=== PATIENT | male | born 1975 | race Caucasian/White ===

== ENCOUNTER 2018-07-01 18:01 | Emergency (ER) | payer OTHER ==
[~2018-07-01] VITALS: Ht 185.4 cm; Wt 113.4 kg
[~2018-07-01 18:01] MED LIST: ALBU4 PO; ALBU90OI6 INH; ALBU90OI61 INH; CYCL10 PO; HYDHCL25 PO; LORA2 PO; META800 PO; Prednisone20 MG PO; SULI150 PO; TRIA15CR3 TOP
== END 2018-07-01 18:38 ==
LOC: ER 18:01
DX: S29.012A Strain of muscle and tendon of back wall of thorax, initial encounter (principal); X58.XXXA Exposure to other specified factors, initial encounter; Z79.899 Other long term (current) drug therapy; J45.909 Unspecified asthma, uncomplicated
CPT/HCPCS: 96372; 99283-25; J1885

== ENCOUNTER 2022-10-01 16:47 | Emergency (ER) | payer OTHER ==
[~2022-10-01] VITALS: Ht 185.4 cm; Wt 117.9 kg
[2022-10-01 16:54] VITALS: BP 144/95
[2022-10-01] MEDS ORDERED: ALBU90OI INH (17:58)
== END 2022-10-01 18:10 | disposition home or self-care (01) ==
LOC: ER 16:47
DX: S52.125A Nondisplaced fracture of head of left radius, initial encounter for closed fracture (principal); M25.512 Pain in left shoulder; W17.89XA Other fall from one level to another, initial encounter; Z79.899 Other long term (current) drug therapy; J45.909 Unspecified asthma, uncomplicated
CPT/HCPCS: 73030; 73080; 73090; 99283-25

== ENCOUNTER 2023-01-07 05:34 | Emergency (ER) | payer OTHER ==
[~2023-01-07] VITALS: Ht 182.9 cm; Wt 113.4 kg
[~2023-01-07 05:34] MED LIST changes: +ALBU90OI INH
[2023-01-07] MEDS ORDERED: MORP15ER PO (09:25)
[2023-01-07] MEDS ORDERED: Robaxin750 MG PO (09:25)
[2023-01-07 10:00] VITALS: BP 136/98
== END 2023-01-07 10:23 | disposition home or self-care (01) ==
LOC: ER 05:34
DX: M53.3 Sacrococcygeal disorders, not elsewhere classified (principal); M54.18 Radiculopathy, sacral and sacrococcygeal region; M54.42 Lumbago with sciatica, left side; M62.830 Muscle spasm of back; J45.909 Unspecified asthma, uncomplicated; Z79.899 Other long term (current) drug therapy
CPT/HCPCS: 72148; A9270; J1100; J2270

== ENCOUNTER 2023-05-11 15:12 | Emergency (ER) | payer OTHER ==
[~2023-05-11] VITALS: Ht 185.4 cm; Wt 127.0 kg
[~2023-05-11 15:12] MED LIST changes: +MORP15ER PO; +Robaxin750 MG PO
[2023-05-11 15:50] VITALS: BP 132/96
== END 2023-05-11 18:07 | disposition home or self-care (01) ==
LOC: ER 15:12
DX: S01.01XA Laceration without foreign body of scalp, initial encounter (principal); W22.8XXA Striking against or struck by other objects, initial encounter; Z79.899 Other long term (current) drug therapy; J45.909 Unspecified asthma, uncomplicated
CPT/HCPCS: 12001; 90471; 90714; 99282-25

== ENCOUNTER 2024-09-14 15:28 | Emergency (ER) | payer OTHER ==
[~2024-09-14] VITALS: Ht 185.4 cm; Wt 117.9 kg
[2024-09-14] MEDS ORDERED: Glucagon 1 MG/KIT VIAL IV ONE (15:40)
[2024-09-14] MEDS ORDERED: Ondansetron HCl 2 MG / ML 2ML Vial IV ONE (15:50)
[2024-09-14 15:53] LABS: BASOPHILS ABSOLUTE AUTO 0.08 K/mm3 (0.00-0.23); BASOPHILS PERCENT AUTO 1 % (0-2); EOSINOPHILS ABSOLUTE AUTO 0.81 K/mm3 (0.00-0.68); EOSINOPHILS PERCENT AUTO 12 % (0-6); Hematocrit 43.7 % (37.0-53.0); Hemoglobin 15.4 g/dL (13.5-17.5); IMMATURE GRAN ABSOLUTE AUTO 0.02 K/mm3 (0.00-0.10); IMMATURE GRAN PERCENT AUTO 0 % (0-1); LYMPHOCYTES ABSOLUTE AUTO 2.03 K/mm3 (0.84-5.20); LYMPHOCYTES PERCENT AUTO 31 % (21-46); MONOCYTES ABSOLUTE AUTO 0.55 K/mm3 (0.16-1.47); MONOCYTES PERCENT AUTO 8 % (4-13); Mean Corpuscular HGB 30.2 pg (26.0-34.0); Mean Corpuscular HGB Conc 35.2 g/dL (31.5-36.5); Mean Corpuscular Volume 86 fL (80-100); Mean Platelet Volume 9.4 fL (9.1-12.4); NEUTROPHILS ABSOLUTE AUTO 3.11 K/mm3 (1.96-9.15); NEUTROPHILS PERCENT AUTO 47 % (41-73); Platelet Count 273 K/mm3 (150-400); RDW Coefficient Variation 12.7 % (11.7-14.2); RDW Standard Deviation 39.6 fL (35.1-46.3)
[2024-09-14] MEDS ORDERED: Glucagon, Human Recombinant 1 MG/Vial IV ONE (15:55)
[2024-09-14 16:22] LABS: Albumin, Blood 4.3 g/dL (3.4-5.0); Albumin/Globulin Ratio 1.4 (0.8-1.8); Bilirubin, Total 1.5 mg/dL (0.1-1.0); Bun/Creatinine Ratio 11.3 (12.0-20.0); Calcium, Blood 9.3 mg/dL (8.5-10.1); Creatinine, Blood 1.15 mg/dL (0.60-1.20); Globulin, Blood 3.1 g/dL (2.2-4.0); Potassium, Blood 3.8 mmol/L (3.5-5.5); Total Protein, Blood 7.4 g/dL (6.4-8.2)
[2024-09-14 17:32] VITALS: BP 120/92
== END 2024-09-14 17:40 | disposition home or self-care (01) ==
LOC: ER 15:28
PROVIDERS: Student in an Organized Health Care Education/Training Program
DX: T18.128A Food in esophagus causing other injury, initial encounter (principal); W44.F3XA Food entering into or through a natural orifice, initial encounter; J45.909 Unspecified asthma, uncomplicated; Z87.81 Personal history of (healed) traumatic fracture
CPT/HCPCS: 80053; 85025; 96374; 96375; 99283-25; J1610; J2405

== ENCOUNTER → 2025-02-18 | Outpatient (CLI) | payer OTHER ==
[2025-02-18 15:58] LABS: BASOPHILS ABSOLUTE AUTO 0.06 K/mm3 (0.00-0.23); BASOPHILS PERCENT AUTO 1 % (0-2); EOSINOPHILS ABSOLUTE AUTO 0.17 K/mm3 (0.00-0.68); EOSINOPHILS PERCENT AUTO 3 % (0-6); Hematocrit 45.7 % (37.0-53.0); Hemoglobin 15.9 g/dL (13.5-17.5); IMMATURE GRAN ABSOLUTE AUTO 0.01 K/mm3 (0.00-0.10); IMMATURE GRAN PERCENT AUTO 0 % (0-1); LYMPHOCYTES ABSOLUTE AUTO 1.56 K/mm3 (0.84-5.20); LYMPHOCYTES PERCENT AUTO 26 % (21-46); MONOCYTES ABSOLUTE AUTO 0.42 K/mm3 (0.16-1.47); MONOCYTES PERCENT AUTO 7 % (4-13); Mean Corpuscular HGB Conc 34.8 g/dL (31.5-36.5); Mean Corpuscular Volume 87 fL (80-100); NEUTROPHILS ABSOLUTE AUTO 3.76 K/mm3 (1.96-9.15); NEUTROPHILS PERCENT AUTO 63 % (41-73); NRBC ABSOLUTE 0.00 K/mm3 (0.00-0.02); NRBC Auto 0.0 /100 WBC (0.0-0.2); Platelet Count 298 K/mm3 (150-400); RDW Coefficient Variation 12.7 % (11.7-14.2); RDW Standard Deviation 39.8 fL (35.1-46.3)
[2025-02-18 18:44] LABS: Alanine Aminotransfer (ALT/SGP 53 U/L (12-78); Albumin, Blood 4.4 g/dL (3.4-5.0); Albumin/Globulin Ratio 1.5 (0.8-1.8); Anion Gap 8 mmol/L (3-11); Aspartate Aminotrans (AST/SGOT 26 U/L (12-37); Bilirubin, Total 1.7 mg/dL (0.1-1.0); Blood Urea Nitrogen 14 mg/dL (8-24); CHOL/HDL RATIO 2.0; CO2, Blood 25 mmol/L (21-32); Calcium, Blood 9.2 mg/dL (8.5-10.1); Chloride, Blood 107 mmol/L (98-108); Cholesterol 133 mg/dL (50-200); Creatinine, Blood 0.89 mg/dL (0.60-1.20); Globulin, Blood 2.9 g/dL (2.2-4.0); Glucose, Blood 94 mg/dL (70-99); HDL Cholesterol 66 mg/dL (>39); LDL/HDL RATIO 0.8; Low Density Lipoprotein Chol 54 mg/dL (0-110); Potassium, Blood 3.6 mmol/L (3.5-5.5); Sodium, Blood 136 mmol/L (136-145); Thyroid Stimulating Hormone 3.970 uIU/mL (0.360-4.800); Total Protein, Blood 7.3 g/dL (6.4-8.2); Triglycerides 66 mg/dL (30-160); Very Low Density Lipoprot Chol 13 mg/dL (6-32)
== END ==
LOC: LAB 11:55 → LAB SHORT 11:55
PROVIDERS: Nurse Practitioner Family
DX: Z00.00 Encounter for general adult medical examination without abnormal findings (principal)
CPT/HCPCS: 80053; 80061; 83036; 84439; 84443; 84481; 85025

== ENCOUNTER → 2025-02-23 | Outpatient (CLI) | payer OTHER | END | disposition home or self-care (01) | LOC: LAB SHORT 21:48 → LAB 21:48 | DX: L08.9 Local infection of the skin and subcutaneous tissue, unspecified (principal) | CPT/HCPCS: 87070; 87205 ==

== ENCOUNTER → 2025-03-15 | Outpatient (CLI) | payer OTHER ==
[2025-03-18 23:58] LABS: OVA AND PARASITE,FECAL INTERP Negative (Negative)
== END | disposition home or self-care (01) ==
LOC: LAB 08:00 → LAB SHORT 08:00
PROVIDERS: Nurse Practitioner Family
DX: R19.7 Diarrhea, unspecified (principal)
CPT/HCPCS: 87177; 87209

== ENCOUNTER 2025-03-16 10:30 | Day surgery (SDC) | payer OTHER ==
[~2025-03-16] VITALS: Ht 185.4 cm; Wt 123.2 kg
[2025-03-16] MEDS ORDERED: CeFAZolin Sodium 2,000 MG VIAL ONE (10:39)
[2025-03-16] MEDS ORDERED: FentaNYL Citrate 50 MCG/ML 2 ML Injection ONE ×2 (11:18→12:32)
[2025-03-16] MEDS ORDERED: Midazolam HCl 1MG / ML 2ML Vial ONE (11:18)
[2025-03-16] MEDS ORDERED: Bupivacaine 0.5% W/EPI 1:200000 SDV 30 ML Vial INJ ONE (12:27)
[2025-03-16] MEDS ORDERED: HYDROmorphone HCl/Pf 1MG SYR ONE (12:32)
[2025-03-16] MEDS ORDERED: Dexamethasone Sod Phos 10 MG/ML 1ML VIAL ONE (12:36)
[2025-03-16] MEDS ORDERED: Ketorolac Tromethamine 30mg Vial ONE (12:36)
[2025-03-16] MEDS ORDERED: Ondansetron HCl 2 MG / ML 2ML Vial ONE (12:36)
[2025-03-16] MEDS ORDERED: HYDROcodone 5-APAP 325 TAB ONE (13:37)
[2025-03-16 14:04] VITALS: BP 142/94
== END 2025-03-16 13:59 | disposition home or self-care (01) ==
LOC: ORSCSDS 10:30
PROVIDERS: Orthopaedic Surgery
PROC: 0SJC4ZZ Inspection of Right Knee Joint, Percutaneous Endoscopic Approach (ICD-10-PCS; principal; 2025-03-16 12:00)
DX: M23.41 Loose body in knee, right knee (principal); I10 Essential (primary) hypertension; J45.909 Unspecified asthma, uncomplicated; E03.9 Hypothyroidism, unspecified; Z79.899 Other long term (current) drug therapy; Z68.35 Body mass index [BMI] 35.0-35.9, adult
CPT/HCPCS: 88304; A9270; J0166; J0690; J1100; J1171; J1885; J2250; J2405; J2704; J3010; J7120